=== PATIENT | female | born 1960 ===

== ENCOUNTER 2025-01-16 10:27 | Day surgery (SDC) | payer OTHER ==
[~2025-01-16] VITALS: Ht 167.6 cm; Wt 89.6 kg
[2025-01-16] VITALS (14 sets, daily range): BP systolic 100–155; BP diastolic 51–92
[~2025-01-16 10:27] MED LIST: ACET500 PO; ALBU90OI INH; BUPR150ER; EZET10 PO; MELO7.5 PO; THERA-D2000 UNIT PO; TRAM50 PO
[2025-01-16] MEDS ORDERED: CeFAZolin Sodium 2,000 MG in NS 100 ML IV SCH (12:20)
[2025-01-16] MEDS ORDERED: BUPROPION XL150 M1 PO (13:12)
[2025-01-16] MEDS ORDERED: ATORVASTATIN CA20 MG PO (13:13)
[2025-01-16] MEDS ORDERED: HYDROCODONE-AC1 EA19 PO (13:14)
[2025-01-16] MEDS ORDERED: Midazolam HCl 1MG / ML 2ML Vial ONE (14:23)
[2025-01-16] MEDS ORDERED: Bupivacaine HCl 0.25% 30 ML Injection ONE (14:23)
[2025-01-16] MEDS ORDERED: Dexamethasone Sod Phos 10 MG/ML 1ML VIAL ONE ×2 (14:23→15:43)
[2025-01-16] MEDS ORDERED: Bupivacaine 0.5% HCl 5 MG/ML 30MLVIAL ONE (14:55)
[2025-01-16] MEDS ORDERED: FentaNYL Citrate 50 MCG/ML 2 ML Injection ONE ×2 (15:18→16:41)
[2025-01-16] MEDS ORDERED: Rocuronium Bromide 10 MG/ML 5ML Injection IV ONE (15:43)
[2025-01-16] MEDS ORDERED: Ketorolac Tromethamine 30mg Vial ONE (15:43)
[2025-01-16] MEDS ORDERED: Ondansetron HCl 2 MG / ML 2ML Vial ONE (15:43)
[2025-01-16] MEDS ORDERED: Prochlorperazine Edisylate 10 mg Vial IV PRN (15:45)
[2025-01-16] MEDS ORDERED: Labetalol HCL 5 MG/ML 4ML Injection (Single Dose) IV PRN (15:45)
[2025-01-16] MEDS ORDERED: Ondansetron HCl 2 MG / ML 2ML Vial IV PRN (15:45)
[2025-01-16] MEDS ORDERED: HYDROmorphone HCl/Pf 1MG SYR IV PRN (15:45)
[2025-01-16] MEDS ORDERED: FentaNYL Citrate 50 MCG/ML 2 ML Injection IV PRN ×2 (15:50)
[2025-01-16] MEDS ORDERED: Sugammadex Sodium 200 MG/2ML SDV (100 MG/ML) ONE (16:00)
[2025-01-16] MEDS ORDERED: HYDROcodone 5-APAP 325 TAB PO PRN (16:30)
--- NOTE | 2025-01-16 18:00 | NUR ---
Discharge instructions reviewed with patient. Patient verbalizes understanding. Copy given to patient to take home. Discharged via wheelchair.
== END 2025-01-16 18:15 | disposition home or self-care (01) ==
LOC: ORSCMMR 10:27 → ORD 13:30 → ORSCMMR 13:30
PROVIDERS: Orthopaedic Surgery
PROC: 0PSH04Z Reposition Right Radius with Internal Fixation Device, Open Approach (ICD-10-PCS; principal; 2025-01-16 15:00)
DX: S52.571A Other intraarticular fracture of lower end of right radius, initial encounter for closed fracture (principal); W18.30XA Fall on same level, unspecified, initial encounter; J45.909 Unspecified asthma, uncomplicated; Z87.891 Personal history of nicotine dependence; E66.9 Obesity, unspecified; Z68.32 Body mass index [BMI] 32.0-32.9, adult; Z79.899 Other long term (current) drug therapy
CPT/HCPCS: A9270; C1713; J0690; J1100; J1171; J1885; J2250; J2405; J2704; J3010; J7120